=== PATIENT | male | born 1970 | race Caucasian/White ===

== ENCOUNTER 2017-05-19 05:28 | Emergency (ER) | payer BC ==
[2017-05-19] MEDS ORDERED: Ibuprofen TAB* 800 MG PO ONE (06:16)
--- NOTE | 2017-05-19 06:54 | ED ---
I, Cruz,Daniel, scribed for Stanley Yu MD on 05/19/17 at 0617 . Throat Pain/Nasal Congestion - HPI Summary HPI Summary: This 46 y/o male presents to ED for gradually worsening sore throat and coughing since 2 days ago. Positive fever reported with temperature of 102.9 F at home [employer]. Temperature of 99.9 F is noted at triage. present at bedside expresses concern stating that pt "almost threw up with coughing so much". Pt did not take any med to control his symptoms. PMHx includes HTN. Pt is not a smoker. Plan of care involving rapid flu swap and CXR to r/o flu and PNA is discussed with pt and present at bedside, and they are agreeable at this moment. 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, Medical Records Onset/Duration: Gradual Onset, Lasting Days - 2 days ago, Still Present Cough: Nonproductive - Allergies/Home Medications Allergies/Adverse Reactions: Allergies Allergy/AdvReac Type Severity Reaction Status Date / Time Ascorbate Allergy Intermediate Swelling Verified 04/02/15 13:35 [From Multivitamin Therapeutic] Bupropion [From Wellbutrin] Allergy Intermediate Swelling Verified 04/02/15 13: 35 Niacinamide Allergy Intermediate Swelling Verified 04/02/15 13:35 [From Multivitamin Therapeutic] Pantothenic Acid Allergy Intermediate Swelling Verified 04/02/15 13:35 [From Multivitamin Therapeutic] Pyridoxine Allergy Intermediate Swelling Verified 04/02/15 13:35 [From Multivitamin Therapeutic] Riboflavin Allergy Intermediate Swelling Verified 04/02/15 13:35 [From Multivitamin Therapeutic] Thiamine Allergy Intermediate Swelling Verified 04/02/15 13:35 [From Multivitamin Therapeutic] Vitamin A Allergy Intermediate Swelling Verified 04/02/15 13:35 [From Multivitamin Therapeutic] Vitamin B12 Allergy Intermediate Swelling Verified 04/02/15 13:35 [From Multivitamin Therapeutic] PMH/Surg Hx/FS Hx/Imm Hx Endocrine/Hematology History: Denies: Hx Diabetes, Hx Thyroid Disease Cardiovascular History: Reports: Hx Hypertension Respiratory History: Denies: Hx Asthma, Hx Chronic Obstructive Pulmonary Disease (COPD) GI History: Denies: Hx Ulcer Infectious Disease History: Yes Infectious Disease History: Reports: Hx Shingles - 2003 Denies: Hx Clostridium Difficile, Hx Hepatitis, Hx Human Immunodeficiency Virus (HIV), Hx of Known/Suspected MRSA, Hx Tuberculosis, Hx Known/Suspected VRE , Hx Known/Suspected VRSA, History Other Infectious Disease, Traveled Outside the [place] in Last 30 Days - Family History Known Family History: Negative: Cardiac Disease - Social History Alcohol Use: Rare Substance Use Type: Reports: None Smoking Status (MU): Never Smoked Tobacco Review of Systems Positive: Fever - Temperature of 102.9 F at home Positive: Sore Throat Positive: Cough Positive: Nausea. Negative: Vomiting All Other Systems Reviewed And Are Negative: Yes Physical Exam Triage Information Reviewed: Yes Vital Signs On Initial Exam: Initial Vitals Temp Pulse Resp BP Pulse Ox 99.9 F 75 18 153/102 95 05/19/17 05:44 05/19/17 05:44 05/19/17 05:44 05/19/17 05:44 05/19/17 05:44 Vital Signs Reviewed: Yes Diagnostics - Vital Signs Vital Signs Temp Pulse Resp BP Pulse Ox 05/19/17 06:07 98.3 F 05/19/17 06:03 69 96 05/19/17 06:01 138/98 05/19/17 05:44 99.9 F 75 18 153/102 95 - Laboratory Lab Results: Lab Results 05/19/17 05/19/17 Range/Units 06:33 06:37 Influenza A (Rapid) Negative (Negative) Influenza B (Rapid) Negative (Negative) Group A Strep Rapid Negative (Negative) Lab Statement: Any lab studies that have been ordered have been reviewed, and results considered in the medical decision making process. - Radiology No standard instances Xray Interpretation: No Acute Changes Radiology Interpretation Completed By: ED Physician Re-Evaluation - Re-Evaluation First Eval Re-Evaluation Time: 07:17 Comment: results d/w pt EENT Course/Dx - Diagnoses Provider Diagnoses: Cough, Viral syndrome Discharge - Discharge Plan Condition: Improved Disposition: HOME Discharge Disposition Comment: Signed out at shift change. Pending CXR and rapid flu result. Prescriptions: Cetirizine* [ZyrTEC 10 MG TAB*] 10 mg PO DAILY #7 tab GuaiFENesin DM* [Robitussin DM*] 10 ml PO Q4H #180 ml Referrals: Garcia Lemon MD [Primary Care Provider] - The documentation as recorded by the [email or web address] urena Soohyun accurately reflects the service I personally performed and the decisions made by me, Stanley Yu MD.
[2017-05-19 07:47] VITALS: BP 142/91
--- NOTE | 2017-05-19 07:49 | RAD ---
INDICATION: Fever and cough COMPARISON: None TECHNIQUE: PA and lateral views of the chest were obtained. FINDINGS: The heart and mediastinum are normal in size and contour. There is potential faint infiltrate overlying the medial right lung base. The remaining visualized lungs are are grossly clear. There is no evidence of large pleural effusion. Visualized bones are normal for the patient's age. There is no radiographic evidence of free air beneath the diaphragm IMPRESSION: POTENTIAL INFILTRATE AT THE RIGHT LUNG BASE.
== END 2017-05-19 07:45 | disposition home or self-care (01) ==
LOC: ED 05:28
DX: B34.9 Viral infection, unspecified (principal); R05 Cough; I10 Essential (primary) hypertension
CPT/HCPCS: 71020; 87502; 87651; 99282; A9270-GY

== ENCOUNTER 2017-10-31 11:45 | Emergency (ER) | payer BC ==
--- NOTE | 2017-10-31 12:27 | UC ---
Hand/Wrist HPI - HPI Summary HPI Summary: Pt presents with right middle finger pain since yesterday. He tells me that yesterday he went to open his truck gate, but it was frozen - so he pulled harder when it swung open and hit his finger between the gate and the bumper. Had immediate pain and "numb feeling" followed by swelling of right middle finger. Woke up today and still had pain, but numbness is improved. Today he thinks the ring and index fingers are swollen as well. Denies hx of injury to this hand or finger. Took some ibuprofen last night and has been applying ice. - History Of Current Complaint Chief Complaint: UCUpperExtremity Stated Complaint: FINGER INJURY Time Seen by Provider: 10/31/17 12:20 Hx Obtained From: Patient Onset/Duration: Sudden Onset Severity Initially: Mild Severity Currently: Mild Pain Intensity: 1 Pain Scale Used: 0-10 Numeric Character Of Pain: Aching, Stiffness - Allergies/Home Medications Allergies/Adverse Reactions: Allergies Allergy/AdvReac Type Severity Reaction Status Date / Time Ascorbate Allergy Intermediate Swelling Verified 10/31/17 12:01 [From Multivitamin Therapeutic] Bupropion [From Wellbutrin] Allergy Intermediate Swelling Verified 10/31/17 12: 01 Niacinamide Allergy Intermediate Swelling Verified 10/31/17 12:01 [From Multivitamin Therapeutic] Pantothenic Acid Allergy Intermediate Swelling Verified 10/31/17 12:01 [From Multivitamin Therapeutic] Pyridoxine Allergy Intermediate Swelling Verified 10/31/17 12:01 [From Multivitamin Therapeutic] Riboflavin Allergy Intermediate Swelling Verified 10/31/17 12:01 [From Multivitamin Therapeutic] Thiamine Allergy Intermediate Swelling Verified 10/31/17 12:01 [From Multivitamin Therapeutic] Vitamin A Allergy Intermediate Swelling Verified 10/31/17 12:01 [From Multivitamin Therapeutic] Vitamin B12 Allergy Intermediate Swelling Verified 10/31/17 12:01 [From Multivitamin Therapeutic] Home Medications: Home Medications Amlodipine Besylate [Norvasc 10 mg tab] 10 mg PO DAILY 10/31/17 [History Confirmed 10/31/17] Hydrochlorothiazide TAB* [Hydrodiuril TAB*] 12.5 mg PO DAILY 10/31/17 [History Confirmed 10/31/17] PMH/Surg Hx/FS Hx/Imm Hx Cardiovascular History: Hypertension - Surgical History Surgical History: None - Family History Known Family History: Negative: Cardiac Disease - Social History Occupation: Employed Full-time Lives: With Family Alcohol Use: Rare Substance Use Type: None Smoking Status (MU): Never Smoked Tobacco - Immunization History Most Recent Influenza Vaccination: Fall 2016 Most Recent Tetanus Shot: 07/19/2011 Review of Systems Constitutional: Negative Skin: Negative, Other - Ecchymosis overlying PIP right middle finger Respiratory: Negative Cardiovascular: Negative Neurovascular: Negative Musculoskeletal: Edema - Right middle finger All Other Systems Reviewed And Are Negative: Yes Physical Exam Triage Information Reviewed: Yes Appearance: Well-Appearing, No Pain Distress, Obese Vital Signs: Initial Vital Signs Temp 98.2 F 10/31/17 11:57 Pulse 56 10/31/17 11:57 Resp 16 10/31/17 11:57 BP 178/112 10/31/17 11:57 Pulse Ox 97 10/31/17 11:57 Vital Signs Reviewed: Yes Cardiovascular: Positive: RRR, No Murmur, Pulses Normal, Brisk Capillary Refill - Right middle finger Musculoskeletal: Positive: Strength Intact - Right middle finger and all fingers , ROM Intact - Right middle finger and all fingers including opposition, Edema @ - Right middle finger mild, Other: - TTP overlying the right middle finger PIP Neurological: Positive: Alert, Other: - Sensations intact right hand and all fingers Psychological: Positive: Age Appropriate Behavior Skin: Negative: rashes Hand/Wrist Course/Dx - Course Course Of Treatment: HandXR : SOFT TISSUE SWELLING. NO ACUTE BONY FINDINGS. Repeat BP 140/100. His HTN is an ongoing issue and he tells me that his PCP is aware and they are in the process of adjusting medications. Suspect contusion of finger. Will place in splint for comfort and advise to continue with ice and ibuprofen prn. - Differential Dx/Diagnosis Provider Diagnoses: Right middle finger contusion Discharge - Discharge Plan Condition: Stable Disposition: HOME Patient Education Materials: Contusion in Adults (ED) Referrals: Garcia Lemon MD [Primary Care Provider] - Additional Instructions: If you develop a fever, shortness of breath, chest pain, new or worsening symptoms - please call your PCP or go to the ED. Your blood pressure was high at todays visit. Please see your primary provider within 4 weeks for recheck and re-evaluation. 1) Activities as tolerated with your hand/finger. 2) Ice, ibuprofen, and splint for comfort as needed.
--- NOTE | 2017-10-31 12:41 | RAD ---
INDICATION: Right third digit pain COMPARISON: None TECHNIQUE: AP, lateral, and oblique views were obtained. FINDINGS: The bony structures, joint spaces, and soft tissues are normal for age. IMPRESSION: NEGATIVE EXAMINATION.
--- NOTE | 2017-10-31 12:44 | RAD ---
INDICATION: Right hand injury COMPARISON: None TECHNIQUE: AP, lateral, and oblique views were obtained. FINDINGS: There are no acute bony findings. The joint spaces are maintained. There is mild soft tissue swelling at the third metacarpophalangeal joint. IMPRESSION: SOFT TISSUE SWELLING. NO ACUTE BONY FINDINGS.
[2017-10-31 13:13] VITALS: BP 142/100
== END 2017-10-31 13:03 | disposition home or self-care (01) ==
LOC: UCEAST 11:45
DX: S60.031A Contusion of right middle finger without damage to nail, initial encounter (principal); W22.8XXA Striking against or struck by other objects, initial encounter; Y93.89 Activity, other specified; Y92.9 Unspecified place or not applicable; I10 Essential (primary) hypertension; E66.9 Obesity, unspecified; Z88.8 Allergy status to other drugs, medicaments and biological substances
CPT/HCPCS: 73140; 99213; G0463

== ENCOUNTER 2018-10-20 07:47 | Emergency (ER) | payer BC ==
--- OUTSIDE RECORDS SUMMARY | 2018-10-20 07:52 | XMS REPORT | Continuity of Care Document ---
:1970 External Reference #:[id number] Author Name Enedelia Murray Care Team Providers Name Role Phone Garcia Lemon MD Primary Care Physician Unavailable Payers Type Date Identification Numbers Payment Provider Subscriber Effective: 2012 Policy Number: [id number] BS Francoise Bojorquez PayID: [id number] [facility] [address] [place] [address] Advance Directives Description No Information Available Problems Date Description Provider Status Onset: 11/08/2014 Dyssomnia Vivian Hayes MD Active Onset: 11/08/2014 Morbid obesity Vivian Hayes MD Active Onset: 02/10/2015 Obstructive sleep apnea syndrome Vivian Hayes MD Active Onset: 02/10/2015 Obesity Vivian Hayes MD Active Onset: 02/23/2018 Localized, primary osteoarthritis Patrick Keenan MD Active Onset: 02/23/2018 Knee joint effusion Patrick Keenan MD Active Family History Date Family Member(s) Problem(s) Comments Father No Current Problems Mother Diabetes Type I Mother had cancer, pt does not know what type; alive and home w/oxygen Siblings 1 Siblings alive and well Social History Type Date Description Comments Sex Unknown Marital Status Lives With Children Lives With Occupation Currently Working Occupation [employer] Tobacco Use Start: Unknown End: Former Cigarette Smoker Unknown Smoking Status Reviewed: 09/29/18 Former Cigarette Smoker ETOH Use Drinks Alcoholic Beverages Rarely Tobacco Use Start: Unknown End: Patient is a former smoked in teens - 2 Unknown smoker yrs Recreational Drug Use Denies Drug Use Exercise Type/Frequency Exercises regularly Exercise Type/Frequency Walks daily Allergies, Adverse Reactions, Alerts Date Description Reaction Status Severity Comments 10/18/2014 Wellbutrin Active swollen arm, feet, toung Medications Medication Date Status Form Strength Qnty SIG Indications Ordering Provider Elbow Support 09/29 Active Misc 2unit Please wear Garcia Left-Right/Small- s nightly to Sonia, edium protect M.D. elbows and improve tendonitis Humira 09/29 Active PSKT 40mg/0.8M 6unit inject 40 L s mg Sonia, subcutaneou M.D. s once every other week prefilled syringe Humira Pen 09/29 Active PNKT 40mg/0.4M 2unit inject 40 L40.50 L s mg sc every Sonia, other week M.D. Methotrexate 08/31 Active Tablets 2.5mg 30tab take 5 L40.50 s capsules/ta Sonia, blets by M.D. mouth once weekly Folic Acid 08/31 Active Tablets 1mg 90tab take one L40.50 s capsule/tab Sonia, let daily M.D. by mouth [place]-3 Fish Oil 03/20 Active Capsules 1290mg 1 by mouth Vivian /2018 one time Freddy, per day (not taking) Hydrochlorothiazid Active Tablets 12.5mg 90tab 1 by mouth Unknown e /0000 s every day Amlodipine Active Tablets 10mg 90tab 1 by mouth Unknown Besylate /0000 s every day Methylprednisolone 06/20 Hx TBPK 4mg 21uni medrol M25.462 ts dosepak F - take as Ree 09/29 instructed 2018 Vitamin D 00 Hx daily Unknown /0000 - 03/19 Diclofenac Sodium Hx Gel 1% Apply 2 Unknown /0000 Grams To - The 03/19 Joint Four Times A Day Turmeric Hx 1 by mouth Unknown /0000 two times - per day 09/29 Boswellia Ivonne Hx 1 by mouth Unknown Extract / two times - per day 09/29 Sulindac Hx Tablets 200mg 1 by mouth Unknown /0000 two times - per day 09/29 Medications Administered in Office Medication Date Status Form Strength Qnty SIG Indications Ordering Provider Depomedrol Administered Injection Kelly 40MG 018 FAROOQ Lee Depomedchasity Administered Injection Kelly 40MG 018 FAROOQ Lee Immunizations CPT Code Status Date Vaccine Lot # [id number] Given 09/29/2018 Pneumococcal Conjugate Vaccine 13 Valent For [id number] Intramuscular Use Vital Signs Date Vital Result Comment 09/29/2018 9:25am Height 73 inches 6'1" Weight 299.00 lb Heart Rate 67 /min BP Systolic Sitting 134 mmHg BP Diastolic Sitting 92 mmHg Respiratory Rate 14 /min Pain Level 6 BMI (Body Mass Index) 39.4 kg/m2 08/31/2018 7:47am Height 73 inches 6'1" Weight 303.00 lb Heart Rate 68 /min BP Systolic 128 mmHg BP Diastolic 80 mmHg Pain Level 7 O2 % BldC Oximetry 98 % BMI (Body Mass Index) 40.0 kg/m2 06/20/2018 8:21am Height 73 inches 6'1" Weight 295.00 lb Heart Rate 61 /min Respiratory Rate 16 /min Body Temperature 97.9 F Pain Level 6 BMI (Body Mass Index) 38.9 kg/m2 06/01/2018 10:27am Height 73 inches 6'1" Weight 296.00 lb Heart Rate 78 /min BP Systolic 136 mmHg BP Diastolic 88 mmHg Respiratory Rate 18 /min Pain Level 7 BMI (Body Mass Index) 39.0 kg/m2 04/20/2018 9:06am Height 73 inches 6'1" Weight 296.00 lb Heart Rate 59 /min BP Systolic 153 mmHg BP Diastolic 101 mmHg Body Temperature 96.9 F BMI (Body Mass Index) 39.0 kg/m2 03/20/2018 8:32am Height 73 inches 6'1" Weight 300.38 lb Heart Rate 52 /min BP Systolic Sitting 142 mmHg Rue large cuff BP Diastolic Sitting 100 mmHg Rue large cuff Respiratory Rate 14 /min O2 % BldC Oximetry 98 % On Ra BMI (Body Mass Index) 39.6 kg/m2 Neck Circumference in inches 20 02/23/2018 8:08am Height 73 inches 6'1" Weight 294.00 lb BP Systolic 126 mmHg BP Diastolic 82 mmHg Respiratory Rate 15 /min Pain Level 8 BMI (Body Mass Index) 38.8 kg/m2 02/10/2015 8:27am Height 73 inches 6'1" Weight 276.00 lb Heart Rate 59 /min BP Systolic Sitting 138 mmHg BP Diastolic Sitting 74 mmHg Respiratory Rate 18 /min O2 % BldC Oximetry 98 % BMI (Body Mass Index) 36.4 kg/m2 11/08/2014 8:23am Height 71 inches 5'11" Weight 282.00 lb Heart Rate 58 /min BP Systolic Sitting 136 mmHg BP Diastolic Sitting 78 mmHg Respiratory Rate 18 /min Body Temperature 98.1 F O2 % BldC Oximetry 98 % BMI (Body Mass Index) 39.3 kg/m2 Neck Circumference in inches 19 Results Test Date Facility Test Result H/L Range Note Anca AB Ser If 08/31/2018 [facility] C-Anca Negative Negative [address] [place] [address] [phone] P-Anca Negative Negative 1 Laboratory test 08/31/2018 [facility] Angiotensin 38 U/L 8 - 53 [address] [place] [address] [phone] CBC Auto Diff 08/31/2018 [facility] White Blood Count 7.5 N 3.5-10.[address] 10^3/[place] [address] [phone] Red Blood Count 5.12 10^6/uL N 4.00-5.40 Hemoglobin 15.4 g/dL N 14.0-18.0 Hematocrit 44 % N 42-52 Mean Corpuscular Volume 86 fL N 80-94 Mean Corpuscular Hemoglobin 30 pg N 27-31 Mean Corpuscular HGB Conc 35 g/dL N 31-36 Red Cell Distribution Width 14 % N 10.5-15 Platelet Count 190 10^3/uL N 150-450 Mean Platelet Volume 9.9 fL N 7.4-10.4 Abs Neutrophils 5.4 10^3/uL N 1.5-7.7 Abs Lymphocytes 1.3 10^3/uL N 1.0-4.8 Abs Monocytes 0.7 10^3/uL N 0-0.8 Abs Eosinophils 0.1 10^3/uL N 0-0.6 Abs Basophils 0 10^3/uL N 0-0.2 Abs Nucleated RBC 0 10^3/uL Granulocyte % 72.0 % N 38-83 Lymphocyte % 17.1 % Low 25-47 Monocyte % 9.8 % High 0-7 Eosinophil % 0.7 % N 0-6 Basophil % 0.4 % N 0-2 Nucleated Red Blood Cells % 0.1 Comp Metabolic Panel 08/31/2018 [facility] Sodium 142 mmol/L N 135-[address] [place] [address] [phone] Potassium 3.2 mmol/L Low 3.5-5.0 Chloride 105 mmol/L N 101-111 Co2 Carbon Dioxide 28 mmol/L N 22-32 Anion Gap 9 mmol/L N 2-11 Glucose 97 mg/dL N 70-100 Blood Urea Nitrogen 18 mg/dL N 6-24 Creatinine 0.94 mg/dL N 0.67-1.17 BUN/Creatinine Ratio 19.1 N 8-20 Calcium 9.3 mg/dL N 8.6-10.3 Total Protein 6.7 g/dL N 6.4-8.9 Albumin 4.6 g/dL N 3.2-5.2 Globulin 2.1 g/dL N 2-4 Albumin/Globulin Ratio 2.2 N 1-3 Total Bilirubin 1.60 mg/dL High 0.2-1.0 Alkaline Phosphatase 90 U/L N 34-104 Alt 45 U/L N 7-52 Ast 32 U/L N 13-39 Egfr Non- 85.3 >60 Egfr 103.2 >60 3 Hepatitis 08/31/2018 [facility] Hepatitis A Nonreactive Nonreactive [address] [place] [address] [phone] Hepatitis B Core AB Igm Nonreactive Nonreactive 5 Hepatitis B Surface Ag Nonreactive Nonreactive 6 Hepatitis C Antibody 08/31/2018 [facility] HCV Index < 0.[address] [place] [address] [phone] Hepatitis C Antibody Nonreactive Nonreactive Arthritis Panel 06/20/2018 [facility] Erythrocyte Sed 17 mm/Hr High 0-[address] [place] [address] [phone] Uric Acid 8.4 mg/dL High 4.4-7.6 Rheumatoid Factor < 10 IU/mL N <15 Anti-Nuclear Antibody 0.6 U 7 Cyclic Citrullinated Peptide <15.6 U 8 Interpretation See Comment 9 Laboratory test 06/20/2018 [facility] C Reactive 2.48 mg/L N < 8.[address] [place] [address] [phone] Hla B27 06/20/2018 [facility] Hla B27 Negative [address] [place] [address] [phone] Hla B27 Interp See Comment 11 Laboratory test 04/20/2018 [facility] Mycobacterial See Comment 12, [address] [place] [address] [phone] Laboratory test 04/20/2018 [facility] Fungal Cult Other SEE RESULT [address] [place] [address] [phone] Laboratory test 04/20/2018 [facility] Fungal Cult Other SEE RESULT [address] [place] [address] [phone] Lyme Disease 04/20/2018 [facility] Lyme Disease SYNOVIAL PCR [address] Source FLUID Tissue/Fluid [place], [place] [id number] [phone] B. burgdorferi PCR Negative Negative B. mayonii PCR Negative Negative B. garinii/B. afzellii PCR Negative Negative 16 Body Fluid Cell 04/20/2018 [facility] Body Fluid Synovial Fluid Count [address] [place] [address] [phone] Body Fluid WBC 187 /mcL N 17 Body Fluid RBC 69 /mcL Body Fluid Appearance Clear Body Fluid Color Yellow Body Fluid Volume 60 mL Body Fluid Neutrophils 3 % Body Fluid Lymph 28 % Body Fluid Solano 69 % Body Fluid Other Cells 3 Body Fluid Total Cells Counted 100 Fluid Reviewed By MD (SEE NOTE) 18 Body Fluid C&S 04/20/2018 [facility] Body Fluid SEE RESULT [address] [place] [address] Stain [phone] Laboratory test 04/20/2018 [facility] Body Fluid None Seen None Seen [address] [place] [address] [phone] 1 Negative for cANCA and pANCA patterns by immunofluorescence. ADDITIONAL INFORMATION This test was developed and its performance characteristics determined by [facility] in a manner consistent with CLIA requirements. This test has not been cleared or approved by the U.S. Food and Drug Administration. Test Performed by: [facility] BLOVES - [facility] [address] [place] [address] 2 Test Performed by: [facility] - [place] [address] [place] [address] 3 Because ethnic data is not always readily available, this report includes an eGFR for both -Americans and non- Americans. The National Kidney Disease Education Program (NKDEP) does not endorse the use of the MDRD equation for patients that are not between the ages of 18 and 70, are , have extremes of body size, muscle mass, or nutritional status, or are non- or non-. According to the National Kidney Foundation, irrespective of diagnosis, the stage of the disease is based on the level of kidney function: Stage Description GFR(mL/min/1.73 m(2)) 1 Kidney damage with normal or decreased GFR 90 2 Kidney damage with mild decrease in GFR 60-89 3 Moderate decrease in GFR 30-59 4 Severe decrease in GFR 15-29 5 Kidney failure <15 (or dialysis) 4 Please check labs and xrays today 5 Please check labs and xrays today 6 Please check labs and xrays today 7 REFERENCE VALUE <=1.0 (Negative) 8 REFERENCE VALUE <20.0 (Negative) 9 Tests for antibodies to dsDNA and YEHUDA antigens are not performed automatically unless the CIELO result is > or= 3.0 U. Studies performed at [facility] indicate that positive CIELO results <3.0 U are rarely accompanied by positive second order tests. Test Performed by: [facility] - [facility] [address] [place] [address] 10 REFERENCE VALUE Not Applicable 11 RESULT: HLA-B27 antigen was not detected. ADDITIONAL INFORMATION Method: Flow Cytometry Performing Laboratory IA# [id number] Test Performed by: [facility] [address] [place] [id number] 12 [id number] SOURCE: SYNOVIAL FLUID, NOT OTHERWISE SPECIFIED, SYNOVIAL FLUID MYCOBACTERIAL CULTURE FINAL No growth after 42 days of incubation. Test Performed by: [facility] [address] [place] [address] 14 SEE RESULT BELOW Name: NORMA BOJORQUEZ : [address]: Patrick Keenan MD Acct: [id number] Unit: [id number] AGE: 47 Location: [facility] Re04/20/18 SEX: M Status: REG REF SPEC: [id number] DOMINGO: 04/20/18-[address] [facility] DR: Patrick Keenan MD REQ: [id number] RECD: 04/20/18 STATUS: COMP _ SOURCE: WOUND SPDESC:KNEE LEFT ORDERED: Fungal - Other COMMENTS: [id number] Procedure Result Reported Site Fungal Cult - Other Sources Final 05/22/18- 1254 ML No Growth Week 4 * ML - Main Lab . END OF REPORT DEPARTMENT OF PATHOLOGY, [address] [place] [address] Deric Kiran M.D. Director [facility] # [id number] 15 SEE RESULT BELOW Name: NORMA BOJORQUEZ : [address]: Patrick Keenan MD Acct: [id number] Unit: [id number] AGE: 47 Location: [facility] Re04/20/18 SEX: M Status: REG REF SPEC: [id number] DOMINGO: 04/20/18-[address]: Patrick Keenan MD REQ: [id number] RECD: 04/20/18 STATUS: RES _ SOURCE: WOUND SPDESC:KNEE LEFT ORDERED: Fungal - Other COMMENTS: [id number] Procedure Result Reported Site Fungal Cult - Other Sources Preliminary 05/15/18- 1055 ML No Growth Week 3 * ML - Main Lab . END OF REPORT DEPARTMENT OF PATHOLOGY, [address] [place] [address] Deric Kiran M.D. Director [facility] # [id number] 16 ADDITIONAL INFORMATION This test was developed and its performance characteristics determined by [facility] in a manner consistent with CLIA requirements. This test has not been cleared or approved by the U.S. Food and Drug Administration. Test Performed by: [facility] - [address] [address] -- REFERENCE VALUE -- Synovial: <150/mcL Peritoneal: <500/mcL Pleural: <500/mcL Pericardial: <500/mcL 18 No acute inflammatory response noted. No microorganisms seen. Reviewed by Dr. Kiran 19 SEE RESULT BELOW Name: NORMA BOOJRQUEZ : [address]: Patrick Keenan MD Acct: [id number] Unit: [id number] AGE: 47 Location: [facility] Re04/20/18 SEX: M Status: REG REF SPEC: [id number] DOMINGO: 04/20/18-[address] [facility] DR: Patrick Keenan MD REQ: [id number] RECD: 04/20/18 STATUS: COMP _ SOURCE: BODY FLUID SPDESC: ORDERED: BF Cult/GS, Anaerobic Cult, AFB Cult Smear COMMENTS: [id number] Procedure Result Reported Site Body Fluid Gram Stain Final 04/21/181422 ML 1+ Neutrophils 2+ Nucleated Cells No Organisms Seen Preparation By Cytospin Smear Body Fluid Culture Final 04/24/181120 ML No Growth Day 4 Anaerobic Culture Final 04/24/181120 ML No Growth Day 4 Acid Fast Stain - Direct Final 04/21/181422 ML AFB Smear Result No Acid Fast Bacillus Present (Negative) Preparation By Cytospin Smear Due to limited sensitivity of the smear, results should be used as an adjunct in evaluating the patient's status. This specimen has been sent to referral laboratory for mycobacterial culture. * ML - Main Lab . END OF REPORT DEPARTMENT OF PATHOLOGY, [address] [place] [address] Deric Kiran M.D. 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 M17.12 Unilateral primary osteoarthritis, left knee M54.5 Low back pain M17.0 Bilateral primary osteoarthritis of knee M54.16 Radiculopathy, lumbar region Office Visit 06/01/2018 10:30a Orthopedic Patrick F M25.462 Effusion, left Services Of [facility] Re[facility] knee C.M.A. M17.12 Unilateral primary osteoarthritis, left knee M25.562 Pain in left knee Office Visit 04/20/2018 Orthopedic Patrick F M17.0 Bilateral primary 9:00a Services Of [facility] osteoarthritis of C.M.A. knee M25.462 Effusion, left knee M17.12 Unilateral primary osteoarthritis, left knee Office Visit 03/20/2018 8:30a Pulmonology And Vivian G47.33 Obstructive sleep Sleep Services Of [facility] Freddy apnea (adult) Best Worker (pediatric) E66.01 Morbid (severe) obesity due to excess calories Z68.39 Body mass index (BMI) 39.0-39.9, adult Office Visit 02/23/2018 Orthopedic Patrick F M17.0 Bilateral primary 8:00a Services Of [facility] Re[facility] osteoarthritis of C.M.A. knee M25.462 Effusion, left knee Office Visit 02/10/2015 8:30a Pulmonology And Vivian 327.23 Obstructive Sleep Sleep Services Of [facility] Apnea Adult & Best Worker Pediatric 278.00 Obesity Unspec Office Visit 11/08/2014 8:45a Pulmonology And Vivian 780.59 Sleep Disturbances Sleep Services Of [facility] Freddy Other [facility] 278.01 Obesity Morbid Plan of Treatment Future Appointment(s):11/22/2018 8:20 am - Garcia Scott M.D. 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
[2018-10-20] MEDS ORDERED: HYDROcodone/ACETAMIN 5-325 MG* 1 TAB PO ONE (08:44)
--- NOTE | 2018-10-20 08:53 | UC ---
Lower Extremity/Ankle HPI - HPI Summary HPI Summary: ONSET YESTERDAY OF LEFT GREAT TOE SWELLING AND PAIN. THIS MORNING PAIN IS WORSE AND SWELLING IS ENCOMPASSING HIS WHOLE FOOT. DENIES ANY RECENT INJURY OR TRAUMA THAT HE CAN RECALL. ALSO IS COMPLAINING OF SEVERAL WEEKS OF COUGH, CONGESTION, FATIGUE, BODY ACHES. HAS SUBJECTIVE FEVER AND FATIGUE. TAKES METHOTREXATE WEEKLY FOR PSORIATIC ARTHRITIS. - History of Current Complaint Chief Complaint: UCGeneralIllness Stated Complaint: L FOOT SWELLING, COUGH Time Seen by Provider: 10/20/18 08:08 Hx Obtained From: Patient, Family/Office Automation Technician - Onset/Duration: Gradual Onset, Lasting Days - 1 DAY, Still Present Severity Initially: Mild Severity Currently: Moderate Pain Intensity: 8 Pain Scale Used: 0-10 Numeric Aggravating Factor(s): Standing, Ambulation Alleviating Factor(s): Rest Able to Bear Weight: Yes - WITH PAIN - Allergies/Home Medications Allergies/Adverse Reactions: Allergies Allergy/AdvReac Type Severity Reaction Status Date / Time bupropion [From Wellbutrin] Allergy Intermediate Swelling Verified 10/20/18 08: 01 multivitamin therapeutic Allergy Intermediate Swelling Uncoded 10/20/18 08:01 Home Medications: Home Medications Chlorpheniramine/Dextromethorp [Cough-Cold Tablet] 1 tab PO ONCE PRN 10/20/18 [ History Confirmed 10/20/18] Folic Acid 1 mg PO DAILY 10/20/18 [History Confirmed 10/20/18] Methotrexate TAB* 5 mg PO WEEKLY PRN 10/20/18 [History Confirmed 10/20/18] Potassium 1 tab PO DAILY 10/20/18 [History Confirmed 10/20/18] Sildenafil (NF) [Viagra (NF)] 1 tab PO DAILY PRN 10/20/18 [History Confirmed 02/02] PMH/Surg Hx/FS Hx/Imm Hx - Additional Past Medical History Additional PMH: PSORIATIC ARTHRITIS Cardiovascular History: Hypertension - Surgical History Surgical History: Yes Surgery Procedure, Year, and Place: cirumscision - Family History Known Family History: Negative: Cardiac Disease - Social History Alcohol Use: Rare Substance Use Type: None Smoking Status (MU): Never Smoked Tobacco - Immunization History Most Recent Influenza Vaccination: Fall 2016 Most Recent Tetanus Shot: 07/19/2011 Review of Systems All Other Systems Reviewed And Are Negative: Yes Constitutional: Positive: Fever, Chills, Fatigue ENT: Positive: Nasal Discharge Respiratory: Positive: Cough Cardiovascular: Positive: Negative Gastrointestinal: Positive: Negative Musculoskeletal: Positive: Arthralgia, Decreased ROM, Edema Is Patient Immunocompromised?: Yes - METHOTREXATE Physical Exam Triage Information Reviewed: Yes Appearance: Well-Appearing, Well-Nourished, Pain Distress - MILD Vital Signs: Initial Vital Signs Temp 98.9 F 10/20/18 07:52 Pulse 72 10/20/18 07:52 Resp 20 10/20/18 07:52 BP 131/88 10/20/18 07:52 Pulse Ox 96 10/20/18 07:52 Laboratory Tests 10/20/18 08:15 Influenza A (Rapid) Negative Influenza B (Rapid) Negative Vital Signs Reviewed: Yes Eyes: Positive: Conjunctiva Clear ENT: Positive: Hearing grossly normal, Pharynx normal, TMs normal Neck: Positive: Supple, Nontender, No Lymphadenopathy Respiratory Exam: Normal Cardiovascular Exam: Normal Abdomen Description: Positive: Soft Musculoskeletal: Positive: ROM Limited @ - TOES LEFT FOOT, Edema @ - LEFT FOOT, Other: - EXQUISITELY TENDER LEFT MTP JOINT. NOT TENDER OVER ANKLE OR FOREFOOT. ACHILLES INTACT. NO CALF TENDERNESS OR SWELLING Neurological: Positive: Alert Psychological: Positive: Age Appropriate Behavior Skin: Positive: Other - LEFT FOOT SLIGHTLY ERYTHEMATOUS DIFFUSELY Diagnostics - Radiology LEFT FOOT XRAYS Radiology Interpretation Completed By: Radiologist Summary of Radiographic Findings: SOFT TISSUE SWELLING. OTHERWISE UNREMARKABLE Lower Extremity Course/Dx - Differential Dx/Diagnosis Provider Diagnosis: Acute bronchitis, Swelling of left foot Discharge - Sign-Out/Discharge Documenting (check all that apply): Patient Departure All imaging exams completed and their final reports reviewed: Yes - Discharge Plan Condition: Stable Disposition: HOME Prescriptions: Azithromycin 500 mg PO DAILY #5 tab Codeine Phosphate/Guaifenesin [Codeine-Guaifen 10-100 mg/5 ml] 5 - 10 ml PO Q6H PRN #150 ml MDD 40ML PRN Reason: Cough Indomethacin 50 mg PO TID #15 capsule Patient Education Materials: Low Purine Diet (ED), Gout (ED), Acute Bronchitis (ED) Referrals: Garcia Lemon MD [Primary Care Provider] - (KEEP YOUR APPT IN 3 DAYS) Additional Instructions: YOUR SYMPTOMS MAY BE VIRALLY MEDIATED BUT GIVEN THE LENGTH OF TIME YOU HAVE BEEN ILL AND THE FACT THAT YOU ARE ON IMMUNOSUPPRESSIVE MEDICATION WE WILL COVER YOU WITH ANTIBIOTICS. IF YOU START THE MEDICINE BE SURE TO TAKE IT FOR THE FULL COURSE. REST, HYDRATE, OTC MEDS NEEDED. WILL ALSO TREAT WITH COUGH MEDICINE. SEEK FOLLOW-UP WITH YOUR PCP IF YOU ARE NOT IMPROVING OVER THE NEXT 1- 2 WEEKS. X-RAY OF YOUR FOOT TODAY WAS UNREMARKABLE EXCEPT FOR SOFT TISSUE SWELLING. CONSIDER GOUT. WOULD RECOMMEND LAB WORK ONCE YOU'RE SYMPTOM-FREE TO FURTHER EVALUATE FOR THIS CONDITION. TAKE ANTI-INFLAMMATORY 3 TIMES DAILY PRESCRIBED. INTERACTION BETWEEN THIS MEDICATION AND LOW-DOSE METHOTREXATE IS USUALLY NOT SIGNIFICANT BUT BE SURE TO STAY VERY WELL HYDRATED. - Billing Disposition and Condition Condition: STABLE Disposition: Home
[2018-10-20 10:26] VITALS: BP 142/81
== END 2018-10-20 10:17 | disposition home or self-care (01) ==
LOC: UCEAST 07:47
DX: J20.9 Acute bronchitis, unspecified (principal); M79.89 Other specified soft tissue disorders; L40.50 Arthropathic psoriasis, unspecified; Z88.8 Allergy status to other drugs, medicaments and biological substances; I10 Essential (primary) hypertension
CPT/HCPCS: 99212; G0463

== ENCOUNTER 2019-12-11 07:30 | Inpatient (IN) | payer BC ==
[~2019-12-11 07:30] MED LIST: Buffered Lidocaine 1% SYRIN* 1 ML/SYRINGE INTRADERM ONE; Famotidine IV* 10 MG/ML 2 ML (20 mg) IV ONE; Lactated Ringers 1000 ML Bag* 1,000 ML IV SCH; Scopolamine 1.5 mg* PATCH TRANSDERM ONE
--- OUTSIDE RECORDS SUMMARY | 2019-12-11 12:13 | XMS REPORT | Continuity of Care Document ---
:1970 External Reference #:[id number] Author Name Garcia Scott M.D. 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 Problems Active Problems Provider Date Dyssomnia Vivian Hayes MD Onset: 11/08/2014 Morbid obesity Vivian Hayes MD Onset: 11/08/2014 Obstructive sleep apnea syndrome Vivian Hayes MD Onset: 02/10/2015 Obesity Vivian Hayes MD Onset: 02/10/2015 Localized, primary osteoarthritis Patrick Keenan MD Onset: 02/23/2018 Knee joint effusion Patrick Keenan MD Onset: 02/23/2018 Social History Type Date Description Comments Sex Unknown Tobacco Use Start: Unknown End: Former Cigarette Smoker Unknown Smoking Status Reviewed: 10/22/19 Former Cigarette Smoker ETOH Use Drinks Alcoholic Beverages Rarely Tobacco Use Start: Unknown End: Patient is a former smoked in teens - 2 Unknown smoker yrs Recreational Drug Use Denies Drug Use Exercise Type/Frequency Exercises regularly Exercise Type/Frequency Walks daily Allergies, Adverse Reactions, Alerts Active Allergies Reaction Severity Comments Date Wellbutrin swollen arm, feet, toung 10/18/2014 Medications Active Medications SIG Qnty Indications Ordering Date Provider Ergocalciferol take one 12caps Garcia Scott, 09/26/2019 1.25mg (82172 capsule/tablet M.D. Ut) Capsules by mouth once weekly Atenolol 1 by mouth every 90tabs I71.2 Miquel Alonzo 09/18/2019 25mg Tablets day Chaudhari, DO FACC Colcrys take one 180tabs Garcia Johnsondor, 07/27/2019 0.6mg Tablets capsule/tablet M.D. by mouth twice daily as needed for gout attacks Stelara 90 mg sc at 1ml Garcia Johnsondor, 06/06/2019 90mg/ml Soln Prefill weeks 0 and 4, M.D. Syringe then every 12 weeks thereafter Allopurinol 1 by mouth every 90tabs L40.50 Garcia Johnsondor, 01/10/2019 300mg Tablets day M.D. Hydrocodone-Acetaminophen take one 14tabs Garcia Johnsondor, 12/18/2018 capsule/tablet M.D. 7.5-325mg Tablets by mouth twice daily as needed for acute pain Potassium Chloride ER take one 14tabs Garcia Sonia, 10/08/2018 8Meq capsule/tablet M.D. Tablets ER daily by mouth Hydrochlorothiazide 1 by mouth every 90tabs Unknown 12.5mg day Tablets Amlodipine Besylate 1 by mouth every 90tabs Unknown 10mg day Tablets History Medications Taltz 160 mg (two 80 mg 8units Garcia Johnsondor, 05/17/2019 - 80mg/ml Solution injections) at week M.D. 06/06/2019 Auto-Inject 0, followed by 80 mg at weeks 2, 4, 6, 8, 10, and 12, then 80 mg every 4 weeks. Medications Administered in Office Medication SIG Qnty Indications Ordering Provider Date Depomedrol 40MG FAROOQ Melton 02/23/2018 Injection Depomedrol 40MG FAROOQ Melton 02/23/2018 Injection Immunizations CPT Code Status Date Vaccine Lot # [id number] Given 10/22/2019 Influenza Virus Vaccine, Quadrivalent, Split, [id number] Preservative Free 31209 Given 09/29/2018 Pneumococcal Conjugate Vaccine 13 Valent For [id number] Intramuscular Use Vital Signs Date Vital Result Comment 10/22/2019 7:54am Height 73 inches 6'1" Weight 289.25 lb Heart Rate 61 /min BP Systolic Sitting 132 mmHg BP Diastolic Sitting 80 mmHg Body Temperature 97.5 F Pain Level 5 O2 % BldC Oximetry 98 % BMI (Body Mass Index) 38.2 kg/m2 09/18/2019 7:57am Height 73 inches 6'1" Weight 290.00 lb with shoes Heart Rate 76 /min BP Systolic Sitting 134 mmHg LA BP Diastolic Sitting 92 mmHg LA BP Systolic Standing 138 mmHg LA BP Diastolic Standing 96 mmHg LA BMI (Body Mass Index) 38.3 kg/m2 Ejection Fraction 60-65% Echo 08/30/19 Results Test Acquired Date Facility Test Result H/L Range Note Laboratory test 10/20/2019 [facility] Erythrocyte Sed 3 mm/Hr Normal 0-[address] [place] [address] [phone] C Reactive Protein < 1.00 mg/L Normal <8.01 CBC Auto 10/20/2019 [facility] White Blood 6.7 10^3/uL Normal 3.5-10.[address] [place] [address] [phone] Red Blood Count 4.83 10^6/uL Normal 4.18-5.48 Hemoglobin 14.9 g/dL Normal 14.0-18.0 Hematocrit 43 % Normal 42-52 Mean Corpuscular Volume 89 fL Normal 80-94 Mean Corpuscular Hemoglobin 31 pg Normal 27-31 Mean Corpuscular HGB Conc 35 g/dL Normal 31-36 Red Cell Distribution Width 14 % Normal 10-15 Platelet Count 154 10^3/uL Normal 150-450 Mean Platelet Volume 10.0 fL Normal 7.4-10.4 Abs Neutrophils 4.5 10^3/uL Normal 1.5-7.7 Abs Lymphocytes 1.3 10^3/uL Normal 1.0-4.8 Abs Monocytes 0.8 10^3/uL Normal 0-0.8 Abs Eosinophils 0.1 10^3/uL Normal 0-0.6 Abs Basophils 0.0 10^3/uL Normal 0-0.2 Abs Nucleated RBC 0.0 10^3/uL Granulocyte % 66.7 % Lymphocyte % 19.4 % Monocyte % 11.9 % Eosinophil % 1.4 % Basophil % 0.6 % Nucleated Red Blood Cells % 0.0 Comp Metabolic 10/20/2019 [facility] Sodium 139 mmol/L Normal 135-[address] [place] [address] [phone] Potassium 3.7 mmol/L Normal 3.5-5.0 Chloride 105 mmol/L Normal 101-111 Co2 Carbon Dioxide 25 mmol/L Normal 22-32 Anion Gap 9 mmol/L Normal 2-11 Glucose 87 mg/dL Normal 70-100 Blood Urea Nitrogen 19 mg/dL Normal 6-24 Creatinine 1.05 mg/dL Normal 0.67-1.17 BUN/Creatinine Ratio 18.1 Normal 8-20 Calcium 9.1 mg/dL Normal 8.6-10.3 Total Protein 6.7 g/dL Normal 6.4-8.9 Albumin 4.3 g/dL Normal 3.2-5.2 Globulin 2.4 g/dL Normal 2-4 Albumin/Globulin Ratio 1.8 Normal 1-3 Total Bilirubin 1.40 mg/dL High 0.2-1.0 Alkaline Phosphatase 85 U/L Normal 34-104 Alt 69 U/L High 7-52 Ast 40 U/L High 13-39 Egfr Non- 74.5 >60 Egfr 90.1 >60 1 Laboratory test 10/20/2019 [facility] Uric Acid 6.5 mg/dL Normal 4.4-7.[address] [place] [address] [phone] Vitamin D Total 25(Oh) 26.8 ng/mL Normal 20-50 2 Laboratory test 07/23/2019 [facility] Erythrocyte Sed 8 mm/Hr Normal 0-[address] [place] [address] [phone] C Reactive Protein 1.98 mg/L Normal <8.01 Uric Acid 6.1 mg/dL Normal 4.4-7.6 CBC Auto 07/23/2019 [facility] White Blood 6.8 10^3/uL Normal 3.5-10.[address] [place] [address] [phone] Red Blood Count 5.00 10^6/uL Normal 4.18-5.48 Hemoglobin 15.1 g/dL Normal 14.0-18.0 Hematocrit 44 % Normal 42-52 Mean Corpuscular Volume 87 fL Normal 80-94 Mean Corpuscular Hemoglobin 30 pg Normal 27-31 Mean Corpuscular HGB Conc 35 g/dL Normal 31-36 Red Cell Distribution Width 14 % Normal 10-15 Platelet Count 182 10^3/uL Normal 150-450 Mean Platelet Volume 10.1 fL Normal 7.4-10.4 Abs Neutrophils 4.1 10^3/uL Normal 1.5-7.7 Abs Lymphocytes 1.6 10^3/uL Normal 1.0-4.8 Abs Monocytes 1.0 10^3/uL High 0-0.8 Abs Eosinophils 0.1 10^3/uL Normal 0-0.6 Abs Basophils 0.0 10^3/uL Normal 0-0.2 Abs Nucleated RBC 0.0 10^3/uL Granulocyte % 60.1 % Lymphocyte % 22.8 % Monocyte % 14.9 % Eosinophil % 1.7 % Basophil % 0.5 % Nucleated Red Blood Cells % 0.0 Comp Metabolic 07/23/2019 [facility] Sodium 141 mmol/L Normal 135-[address] [place] [address] [phone] Potassium 3.4 mmol/L Low 3.5-5.0 Chloride 105 mmol/L Normal 101-111 Co2 Carbon Dioxide 28 mmol/L Normal 22-32 Anion Gap 8 mmol/L Normal 2-11 Glucose 85 mg/dL Normal 70-100 Blood Urea Nitrogen 13 mg/dL Normal 6-24 Creatinine 0.91 mg/dL Normal 0.67-1.17 BUN/Creatinine Ratio 14.3 Normal 8-20 Calcium 9.3 mg/dL Normal 8.6-10.3 Total Protein 6.6 g/dL Normal 6.4-8.9 Albumin 4.4 g/dL Normal 3.2-5.2 Globulin 2.2 g/dL Normal 2-4 Albumin/Globulin Ratio 2.0 Normal 1-3 Total Bilirubin 1.20 mg/dL High 0.2-1.0 Alkaline Phosphatase 86 U/L Normal 34-104 Alt 142 U/L High 7-52 Ast 74 U/L High 13-39 Egfr Non- 88.2 >60 Egfr 106.7 >60 3 Laboratory test 06/08/2019 [facility] Surgical SEE RESULT 4 , [address] [place] [address] [phone] 1 Because ethnic data is not always readily [...] 15-29 5 Kidney failure <15 (or dialysis) 2 Total 25-Hydroxyvitamin D2 and D3 (25-OH-VitD) <10 ng/mL (severe deficiency) 10-19 ng/mL (mild to moderate deficiency) 20-50 ng/mL (optimum levels) 51-80 ng/mL (increased risk of hypercalciuria) >80 ng/mL (toxicity possible) 3 Because ethnic data is not always [...] 5 Kidney failure <15 (or dialysis) 4 [id number] 5 SEE RESULT BELOW Name: NORMA BOJORQUEZ : [address]: Herb Pena MD Acct: [id number] Unit: [id number] AGE: 48 Location: [facility] Re06/08/19 SEX: M Status: DEP REF SPEC: [id number] DOMINGO: 06/08/19- SUBM DR: Herb Pena MD REQ: [id number] RECD: 06/08/19 STATUS: MIGUELANGEL ONEILL DR: Hair Lemon MD _ ORDERED: LEVEL 4 COMMENTS: [id number] FINAL DIAGNOSIS Small bowel, duodenum, biopsy: -- Small bowel mucosa with normal villous architecture and no significant pathologic abnormality. CLINICAL HISTORY Gastric bypass POST-OPERATIVE DIAGNOSIS EGD: esophagus ??? normal; gastric ??? mild gastritis biopsy; duodenum ??? biopsy GROSS DESCRIPTION The specimen is received in formalin labeled, Biopsy Duodenum, and consists of three brown red irregular to polypoid soft tissue fragments aggregating 0.6 x 0.4 x 0.2 cm, which are entirely submitted in one cassette. Signed by and Reported on: Deric Kiran MD 1345 END OF REPORT DEPARTMENT OF PATHOLOGY, [address] [place] [address] Deric Kiran M.D. Director [facility] # [id number] Procedures Date Code Description Status 08/30/2019 31109 ECHO Transthoracic, Real-Time 2D With Doppler And Color Completed Flow 08/30/2019 78945 ECHO Transthoracic, Real-Time 2D With Doppler And Color Completed Flow 08/22/2019 54836 Stress Test Completed 08/21/2019 93567 EKG Tracing & Interpretation Completed Medical Devices Description No Information Available Encounters Type Date Location Provider Dx Diagnosis Office Visit 09/18/2019 [place] [facility] Miquel Chaudhari, I71.2 Thoracic aortic 8:00a Of [facility] aneurysm, without rupture Z01.810 Encounter for preprocedural cardiovascular examination E66.8 Other obesity I10 Essential (primary) hypertension L40.50 Arthropathic psoriasis, unspecified Office Visit 08/21/2019 [place] Miquel Alonzo Z01.810 Encounter for 9:00a Cardiology Sima Chaudhari DO preprocedural [facility] cardiovascular examination Z68.38 Body mass index (BMI) 38.0-38.9, adult E66.8 Other obesity R94.31 Abnormal electrocardiogram [ECG] [EKG] I10 Essential (primary) hypertension G47.33 Obstructive sleep apnea (adult) (pediatric) L40.50 Arthropathic psoriasis, unspecified Office Visit 07/23/2019 Rheumatology Garcia L40.50 Arthropathic 8:20a Services Of Denys Scott M.D. psoriasis, unspecified M10.00 Idiopathic gout, unspecified site Z79.899 Other rodent exterminator (current) drug therapy M17.0 Bilateral primary osteoarthritis of knee Office Visit 06/25/2019 Pulmonology And Ninfa G47.33 Obstructive sleep 8:30a Sleep Services Of LINH العلي, RN, apnea (adult) [facility] [employer]AL[employer] (pediatric) E66.9 Obesity, unspecified Z68.37 Body mass index (BMI) 37.0-37.9, adult Office Visit 05/17/2019 Rheumatology Garcia L40.50 Arthropathic 8:00a Services Of Denys Scott M.D. psoriasis, unspecified M10.00 Idiopathic gout, unspecified site Z79.899 Other assisted (current) drug therapy M17.0 Bilateral primary osteoarthritis of knee Assessments Date Code Description Provider 10/22/2019 L40.50 Arthropathic psoriasis, unspecified Garcia Scott M.D. 10/22/2019 M10.00 Idiopathic gout, unspecified site Garcia Scott M.D. 10/22/2019 Z79.899 Other assisted (current) drug Garcia Scott M.D. therapy 10/22/2019 K76.0 Fatty (change of) liver, not Garcia Scott M.D. elsewhere classified 10/22/2019 Z23 Encounter for immunization Garcai Scott M.D. 09/18/2019 I71.2 Thoracic aortic aneurysm, without Miquel hCaudhari, DO [facility] rupture 09/18/2019 Z01.810 Encounter for preprocedural Miquel Chaudhari DO [facility] cardiovascular examination 09/18/2019 E66.8 Other obesity Miquel Chaudhari, DO FAC 09/18/2019 I10 Essential (primary) hypertension Miquel Chaudhari, DO FAC 09/18/2019 L40.50 Arthropathic psoriasis, unspecified Miquel Chaudhari DO FAC 08/30/2019 R94.31 Abnormal electrocardiogram [ECG] Miquel Chaudhari DO [facility] [EKG] 08/30/2019 R94.31 Abnormal electrocardiogram [ECG] Traveling ECHO 2 [EKG] 08/22/2019 Z01.810 Encounter for preprocedural Miquel Chaudhari DO [facility] cardiovascular examination 08/22/2019 R94.31 Abnormal electrocardiogram [ECG] Miquel Chaudhari DO [facility] [EKG] 08/21/2019 Z01.810 Encounter for preprocedural Miquel Chaudhari DO [facility] cardiovascular examination 08/21/2019 Z68.38 Body mass index (BMI) 38.0-38.9, Miquel Chaudhari DO [facility] adult 08/21/2019 E66.8 Other obesity Miquel Chaudhari DO FAC 08/21/2019 R94.31 Abnormal electrocardiogram [ECG] Miquel Chaudhari DO [facility] [EKG] 08/21/2019 I10 Essential (primary) hypertension Miquel Chaudhari DO [facility] 08/21/2019 G47.33 Obstructive sleep apnea (adult) Miquel Chaudhari DO [facility] (pediatric) 08/21/2019 L40.50 Arthropathic psoriasis, unspecified Miquel Chaudhari DO [facility] 07/23/2019 L40.50 Arthropathic psoriasis, unspecified Garcia Scott M.D. 07/23/2019 M10.00 Idiopathic gout, unspecified site Garcia Scott M.D. 07/23/2019 Z79.899 Other rodent exterminator (current) drug Garcia Scott M.D. therapy 07/23/2019 M17.0 Bilateral primary osteoarthritis of Garcia Scott M.D. knee 06/25/2019 G47.33 Obstructive sleep apnea (adult) Ninfa العلي DNP, RN, (pediatric) [facility] 06/25/2019 E66.9 Obesity, unspecified Ninfa العلي DNP RN, [facility] 06/25/2019 Z68.37 Body mass index (BMI) 37.0-37.9, Ninfa العلي DNP, RN, adult [facility] 05/17/2019 L40.50 Arthropathic psoriasis, unspecified Garcia Scott M.D. 05/17/2019 M10.00 Idiopathic gout, unspecified site Garcia Scott M.D. 05/17/2019 Z79.899 Other rodent exterminator (current) drug Garcia Scott M.D. therapy 05/17/2019 M17.0 Bilateral primary osteoarthritis of Garcia Scott M.D. knee Plan of Treatment Future Appointment(s):01/21/2020 8:00 am - Garcia Scott M.D. at [facility]ology Services Of [facility]12/24/2019 8:15 am - Ninfa العلي DNP, RN, [facility] at Pulmonology And Sleep Services Of [facility]10/22/2019 - Garcia Scott M.D.L40.50 Arthropathic psoriasis, vqbjhyhiizaG56.00 Idiopathic gout, unspecified siteZ79.899 Other rodent exterminator (current) drug yefzxchN18.0 Fatty (change of) liver , not elsewhere [id number] Encounter for immunization Functional Status Description No Information Available Mental Status Description No Information Available Referrals Description No Information Available
[2019-12-11] MEDS ORDERED: ceFAZolin 2 GM in NS PREMIX(*) 2 GM/100 ML BAG IVPB ONE (12:47)
[2019-12-11] MEDS ORDERED: Scopolamine 1.5 mg* PATCH ONE (12:47)
[2019-12-11] MEDS ORDERED: Famotidine IV* 10 MG/ML 2 ML (20 mg) ONE (12:47)
[2019-12-11] MEDS ORDERED: Heparin VIAL(*) 5000 UNITS/ML VIAL (FIVE THOUSAND) ONE (12:47)
[2019-12-11] MEDS ORDERED: Ketorolac INJ* 30 MG/ML 1 ML VIAL ONE (13:39)
[2019-12-11] MEDS ORDERED: Ondansetron INJ* 2 MG/ML VIAL ONE (13:39)
[2019-12-11] MEDS ORDERED: Propofol* 10 MG/ML 20 ML BTL ONE (13:39)
[2019-12-11] MEDS ORDERED: Dexamethasone IV* 4 MG/ML 1 ML (4 MG) ONE (13:39)
[2019-12-11] MEDS ORDERED: Lidocaine 2% PF * 5 ML VIAL ONE (13:39)
[2019-12-11] MEDS ORDERED: Rocuronium* 10 MG/ML VIAL ONE (13:40)
[2019-12-11] MEDS ORDERED: fentaNYL* 50 MCG/ML 5 ML VIAL (250 MCG VIAL) ONE (13:40)
[2019-12-11] MEDS ORDERED: Midazolam* 1 MG/ML 5 ML VIAL (5 MG) ONE (13:40)
[2019-12-11] MEDS ORDERED: Methylene Blue 0.5 %* 50 MG/10 ML AMP IV ONE (14:32)
[2019-12-11] MEDS ORDERED: Bupivacaine 0.5% W/EPI SDV* 30 ML VIAL ONE (14:32)
[2019-12-11] MEDS ORDERED: ceFAZolin 1 GM ADVAN(*) 1 GM ADDV.VIAL IVPB ONE (14:45)
[2019-12-11] MEDS ORDERED: Metoclopramide IV* 5 MG/ML 2 ML VIAL ONE (15:30)
[2019-12-11] MEDS ORDERED: DiMENhydriNATE IV* 50 MG/ML VIAL IV PUSH PRN (15:48)
[2019-12-11] MEDS ORDERED: fentaNYL* 50 MCG/ML 2 ML VIAL (100 MCG VIAL) IV PRN (15:48)
[2019-12-11] MEDS ORDERED: Naloxone* 0.4 MG/ML 1 ML VIAL IV PRN (15:48)
[2019-12-11] MEDS ORDERED: Ondansetron INJ* 2 MG/ML VIAL IV PRN ×2 (15:48→16:45)
[2019-12-11] MEDS ORDERED: Acetaminophen IV 1GM/100ML * 1,000 MG/100 ML VIAL IVPB ONE (15:48)
[2019-12-11] MEDS ORDERED: Sugammadex * 500 MG/5 ML VIAL IV PUSH ONE (16:27)
[2019-12-11] MEDS ORDERED: HYDROmorphone INJ1* 1 MG/ML SYRINGE ONE ×2 (16:28→17:10)
[2019-12-11] MEDS ORDERED: Acetaminophen ADULT LIQ* 650 MG/20.3 ML UDC PO PRN (16:45)
[2019-12-11] MEDS ORDERED: HYDROmorphone INJ* 0.5 MG/0.5 ML SYRINGE IV SLOW PU PRN (16:45)
--- NOTE | 2019-12-11 16:45 | BRIEFOPN ---
Brief Operative/Procedure Note - Operation Details Pre-Op Diagnosis: Obesity Post-Op Diagnosis: Obesity Procedures: Laparoscopic marychuy en y gastric bypass Surgeon(s)/Proceduralists: Dr. Pinon. Assist: FAROOQ Alcala Anesthesia: GETA Estimated Blood Loss: <30cc Findings: As above Specimen(s)/Culture(s) Description: None Complications: None
[2019-12-11] MEDS: HYDROmorphone INJ1* 1 MG/ML SYRINGE IV PRN ×2 (17:10→17:20)
[2019-12-11] MEDS: Lactated Ringers 1000 ML Bag* 1,000 ML IV SCH (18:47)
[2019-12-11] MEDS: Famotidine IV* 10 MG/ML 2 ML (20 mg) IV SLOW PU SCH (21:39)
[2019-12-11] MEDS: Heparin VIAL(*) 5000 UNITS/ML VIAL (FIVE THOUSAND) SUBCUT SCH (21:42)
[2019-12-12] MEDS: Ketorolac INJ* 15 MG/ML 1 ML VIAL IV SCH ×2 (00:50→06:10)
[2019-12-12] MEDS: Lactated Ringers 1000 ML Bag* 1,000 ML IV SCH ×2 (01:38→08:52)
--- NOTE | 2019-12-12 02:34 | OP ---
CC: Garcia Lemon MD; [facility] * DATE OF OPERATION: 12/11/19 - ROOM #352 DATE OF : 66 SURGEON: Hair Pinon MD CORD TIRE BUILDER: FAROOQ Lubin ANESTHESIOLOGIST: Keegan Tavarez MD ANESTHESIA: General endotracheal. PRE-OP DIAGNOSIS: Clinically severe obesity. POST-OP DIAGNOSES: Clinically severe obesity and hiatal hernia. OPERATIVE PROCEDURE: Laparoscopic Susie-en-Y gastric bypass. ESTIMATED BLOOD LOSS: Less than 20 mL. IV FLUIDS: Crystalloid. SPECIMEN: None. DRAINS: None. COMPLICATIONS: None. COUNTS: Instrument, needle and sponge counts correct. DESCRIPTION OF PROCEDURE: The patient was brought to the operating room and placed on the table supine. Sequential compression devices were placed on both lower extremities. General anesthesia was administered. His abdomen was prepped and draped in usual sterile fashion. A time-out was performed. Local anesthetic was infiltrated into the skin and soft tissue prior to making each incision. Entry to the abdomen was through a left upper quadrant incision accommodating a 12 mm optical trocar. After accessing the peritoneal cavity, carbon dioxide was insufflated to a pressure of 15 mmHg. Under direct visualization, 12 mm bladeless trocars were placed supraumbilically and in the right upper quadrant, while 5 mm bladeless trocars were placed in the right upper quadrant medially and left upper quadrant laterally. A Jesus liver retractor was placed percutaneously in the subxiphoid position and used to elevate the left lobe of the liver. Gastric anatomy revealed that there was a hiatal hernia. Otherwise, gastric anatomy was normal. Epigastric fat-pad was reduced from the hernia and dissected free. The cardia of the stomach was dissected free from the left arlette of the diaphragm and then perigastric dissection was undertaken in the lesser curvature of the stomach at approximately the second crossing vein entered the lesser sac. With several firings of the Endo-ANITHA stapler with brown cartridges, gastric pouch was created approximating 15 to 30 mL volume. Staple lines were noted to be intact and hemostatic. The omentum was retracted cephalad along the transverse colon and the ligament of Treitz was identified. The jejunum was measured out approximately 50 cm. At this point, the loop was sutured to the lateral staple line of the gastric pouch with interrupted 2-0 silks. Then, a gastrojejunal anastomosis was created with a Endo-ANITHA stapler using the 30 mm brown cartridge. The common gastroenterotomy was run closed with 3-0 PDS over 34-Bahamian gastric lavage tube. The loop of jejunum was divided to the left of the gastric pouch with the Endo-ANITHA stapler with a brown cartridge and then the anastomosis was tested with methylene blue dye solution instilled through the orogastric tube and no leak identified. The Susie limb was measured out 75 cm. At this point, a functional end-to-side jejunojejunostomy was created with the End-ANITHA stapler with 60 mm brown cartridge and the common enterotomy was run closed with 3-0 PDS running it to and fro and tying it to itself. Lastly, the mesenteric defect was closed with interrupted 3-0 silks. At this point, the Jesus liver retractor was removed. Hemostasis was assured. Carbon dioxide and ports were removed. Incisions were closed with 4-0 Monocryl in subcuticular fashion to approximate the skin. DermaFlex was applied to the wound. The patient was extubated uneventfully and transferred to Recovery in stable condition. [id number]/[facility] #: [id number] [facility]ITAL[facility] Eduardo
[2019-12-12] MEDS: Heparin VIAL(*) 5000 UNITS/ML VIAL (FIVE THOUSAND) SUBCUT SCH ×3 (06:12→21:59)
[2019-12-12] MEDS: Famotidine IV* 10 MG/ML 2 ML (20 mg) IV SLOW PU SCH ×2 (09:14→22:01)
--- NOTE | 2019-12-12 11:56 | PN ---
Progress Note - Progress Note Date of Service: 12/12/19 SOAP: Subjective: NAD comfortable in bed tolerating Tong Clears, no flatus or BM yet, no nausea [] Objective: Vital Signs Temp 97.8 F 12/12/19 11:14 Pulse 61 12/12/19 11:14 Resp 12 12/12/19 11:14 BP 140/74 12/12/19 11:14 Pulse Ox 99 12/12/19 11:14 Intake & Output 12/11/19 12/12/19 12/12/19 18:59 06:59 18:59 Intake Total 1550 990 Output Total 1200 Balance 1550 -210 Weight 268 lb 9.6 oz 269 lb 8 oz 270 lb 6.4 oz Intake: IV Fluids 1550 990 LR 1550 990 Oral 0 Output: Urine 1200 PEX: GEN: NAD Chest:CTA CVS: Bradycardic rate rhythm Abd:Obese, soft, incisions C/D/I incisional tenderness Ext:calves soft, non tender [] Assessment:49 yo male POD 1 S/p Laparoscopic Susie en Y Gastric Bypass [] Plan: Tong Clears, Ambulate, encouraged Deep Breathing, IS, SCD's []
[2019-12-12] MEDS: HYDROcodone/ACET. 7.5/325 LIQ* 15 ML UDC PO PRN ×2 (12:00→18:43)
[2019-12-12] MEDS: D5W 1/2 NS KCl 20 Meq 1000 ML* 1,000 ML IV SCH (16:13)
[2019-12-13] MEDS: D5W 1/2 NS KCl 20 Meq 1000 ML* 1,000 ML IV SCH (00:15)
[2019-12-13] MEDS: Heparin VIAL(*) 5000 UNITS/ML VIAL (FIVE THOUSAND) SUBCUT SCH (06:12)
[2019-12-13] MEDS: HYDROcodone/ACET. 7.5/325 LIQ* 15 ML UDC PO PRN (06:17)
--- NOTE | 2019-12-13 08:13 | PN ---
Progress Note - Progress Note Date of Service: 12/13/19 SOAP: Subjective: Feels well. Tolerating po without N/V. +flatus. Pain controlled. Objective: Vital Signs Temp 97.8 F 12/13/19 03:15 Pulse 45 12/13/19 03:15 Resp 20 12/13/19 06:19 BP 155/98 12/13/19 03:15 Pulse Ox 100 12/13/19 03:15 Gen: NAD Abd: incisions c/d/i no erythema/ecchymosis Intake & Output 12/12/19 12/13/19 12/13/19 18:59 06:59 18:59 Intake Total 1989 1729 Output Total 1000 2400 Balance 990 -670 Weight 270 lb 6.4 oz 266 lb Intake: IV Fluids 1959 980 D5W 1/2 NS 20 meq KCL 980 LR 1960 Oral 30 750 Output: Urine 1000 2400 Other: Estimated Void Small # Bowel Movements 0 # Voids 1 Assessment: POD#2 s/p LRYGB. Doing well. Plan: Cont diet. Discharge home today. RTO 1 week.
[2019-12-13 08:14] VITALS: BP 132/84
[2019-12-13] MEDS: Famotidine IV* 10 MG/ML 2 ML (20 mg) IV SLOW PU SCH (08:30)
--- NOTE | 2019-12-13 12:44 | DS ---
CC: Dr. Garcia Lemon; Dr. Scott; Dr. Miquel Chaudhari * DATE OF ADMISSION: 12/11/2019. DATE OF DISCHARGE: 12/13/2019. ATTENDING SURGEON: Dr. Hair Pinon * (dictated by Fauzia Almaguer NP). HOSPITAL COURSE: Please refer to admission history and physical for admission details. The patient was taken to the operating room on Wednesday, December 11, 2019 and underwent laparoscopic Susie-en-Y gastric bypass by Dr. Pinon. He has had an uneventful postoperative course and required minimal pain medication and was able to meet the criteria for oral intake of bariatric clear liquids. He was ambulating in the halls and using his Inspiron. He was seen earlier this morning by Dr. Pinon and myself and he has met the criteria for discharge. PHYSICAL EXAMINATION: Well-appearing, in no acute distress. Vital signs are stable. Blood pressure 132/84, heart rate 48, respiratory rate 16, he is afebrile, O2 saturation on room air 98 percent. Lungs: Breath sounds bilaterally clear and equal. Heart: Regular rate and rhythm. No murmurs or rubs appreciated. Abdomen: All of the incisions are intact with skin glue. The incisions are clean and dry and there is no surrounding erythema. There are active bowel sounds and the patient is passing flatus. His abdomen is soft with appropriate incisional tenderness. Extremities are warm without calf tenderness or significant edema. Skin is warm and dry. CONDITION ON DISCHARGE: Stable. IMPRESSION: Postop day two status post laparoscopic Susie-en-Y gastric bypass, doing extremely well. PLAN: Discharge home today. All of his medications were reviewed. His will be monitoring his pulse which currently is ranging anywhere from 44 to 48 due to being on Atenolol. He has a prescription at home for liquid Hydrocodone/ acetaminophen as needed and he may use [id number] liquid adult strength Tylenol for mild pain. He has an appointment at [facility] next week for follow-up and knows to call sooner with any concerns. All of his questions were answered. LEROY ALMAGUER NP [id number]/[facility] #: [id number] [facility]PITALCarl[facility] Eduardo
[2019-12-14] MEDS ORDERED: Scopolamine PATCH Remove* 1 NOTE MISC PATCH OFF ONE (06:00)
== END 2019-12-13 09:45 | disposition home or self-care (01) | DRG 403 ==
LOC: AA 12:10 → SSU 18:59
PROVIDERS: ADMIT Surgery; ATTEND Surgery
PROC: 0D164ZA Bypass Stomach to Jejunum, Percutaneous Endoscopic Approach (ICD-10-PCS; principal; 2019-12-11 13:15)
DX: E66.01 Morbid (severe) obesity due to excess calories (principal); I10 Essential (primary) hypertension; M19.90 Unspecified osteoarthritis, unspecified site; I71.2 Thoracic aortic aneurysm, without rupture; K44.9 Diaphragmatic hernia without obstruction or gangrene; M10.9 Gout, unspecified; G47.33 Obstructive sleep apnea (adult) (pediatric); L40.50 Arthropathic psoriasis, unspecified; Z88.8 Allergy status to other drugs, medicaments and biological substances; Z68.37 Body mass index [BMI] 37.0-37.9, adult
CPT/HCPCS: 43644; A9270-GY; C1776; J0690; J1100; J1170; J1644; J1885; J2250; J2405; J2704; J2765; J3010

== ENCOUNTER 2019-12-22 13:13 | Emergency (ER) | payer BC ==
[2019-12-22] MEDS ORDERED: NS 0.9% 1000 ML** 1,000 ML IV ONE ×2 (13:46→14:34)
--- NOTE | 2019-12-22 13:56 | ED ---
Dizziness - HPI Summary HPI Summary: 49 year old M presents to [facility] via private car accompanied by his with a chief complaint of dizziness. The patient states that he was dizzy, nauseous, diaphoretic and felt as if he was near syncope earlier this morning. The patient had a bariatric surgical procedure on 12/11/[address] Pinon and has been on a strict fluids diet since the operation. The patient's states that the patient is taking less than the recommended amount of fluids per day. The patient's reports that the patient had dizzy spells in the past, but it was not as severe as his symptoms today. The patient also reports having a chest "ache", SOB, nausea, and rhinorrhea. Patient denies having sore throat, hematuria, pain in his abdomen, and diarrhea. He has a PMHx of a slightly enlarged aortic aneurysm and HTN. He is prescribed atenolol. Home Medications Medication Instructions Recorded Confirmed Type Sildenafil (NF) [Viagra (NF)] 1 tab PO DAILY PRN 10/20/18 12/06/19 History Triamcinolone PASTE 0.1% (NF) 1 applic TOPICAL DAILY PRN 11/10/18 12/06/19 History [Triamcinolone 0.1% PASTE *] Acetaminophen TAB* [Tylenol TAB*] 975 mg PO DAILY PRN 06/08/19 12/11/19 History Atenolol TAB* [Tenormin TAB* 25 MG] 25 mg PO QAM 12/06/19 12/11/19 History Ergocalciferol (Vitamin D2) 1.25 mg PO WE 12/06/19 12/11/19 History [Vitamin D2] Mirtazapine TAB* [Remeron TAB*] 15 mg PO BEDTIME PRN 12/06/19 12/11/19 History Ustekinumab [Stelara] 90 mg SUBCUT Q90D 12/06/19 12/11/19 History - History Of Current Complaint Chief Complaint: EDDizziness Stated Complaint: DIZZINESS/LOW BP PER PT Time Seen by Provider: 12/22/19 13:36 Hx Obtained From: Patient, Family/Armoured Car Escort Onset/Duration: Still Present Character: Room Spinning, Dizzy Associated Signs And Symptoms: Positive: Nausea, Diaphoresis, Chest Pain - "ache ", SOB, Change In Medication - Patient is currently not taking his prescribed atenolol., Change In Diet - Patient is currently on a fluids diet post bariatric surgery on 12/11/2019., Other: - negative - abdominal pain, sore throat, hematuria. Negative: Diarrhea - Risk Factors Cardiac Risk Factors: Hypertension - Allergies/Home Medications Allergies/Adverse Reactions: Allergies Allergy/AdvReac Type Severity Reaction Status Date / Time bupropion [From Wellbutrin] Allergy Intermediate Swelling Verified 12/22/19 13: 22 adalimumab [From Humira] Allergy nausea,chest Verified 12/22/19 13:22 pain,joint aches, reflux Home Medications: Home Medications Sildenafil (NF) [Viagra (NF)] 1 tab PO DAILY PRN 10/20/18 [History Confirmed ] Triamcinolone PASTE 0.1% (NF) [Triamcinolone 0.1% PASTE *] 1 applic TOPICAL DAILY PRN 11/10/18 [History Confirmed 12/06/19] Acetaminophen TAB* [Tylenol TAB*] 975 mg PO DAILY PRN 06/08/19 [History Confirmed 12/11/19] Atenolol TAB* [Tenormin TAB* 25 MG] 25 mg PO QAM 12/06/19 [History Confirmed ] Ergocalciferol (Vitamin D2) [Vitamin D2] 1.25 mg PO WE 12/06/19 [History Confirmed 12/11/19] Mirtazapine TAB* [Remeron TAB*] 15 mg PO BEDTIME PRN 12/06/19 [History Confirmed 12/11/19] Ustekinumab [Stelara] 90 mg SUBCUT Q90D 12/06/19 [History Confirmed 12/11/19] PMH/Surg Hx/FS Hx/Imm Hx Endocrine/Hematology History: Denies: Hx Diabetes, Hx Thyroid Disease Cardiovascular History: Reports: Hx Hypertension, Other Cardiovascular Problems/ Disorders - REPORTS SMALL ANEURSYM ON VALVE-SEE [facility] Denies: Hx Pacemaker/ICD Respiratory History: Reports: Hx Sleep Apnea Denies: Hx Asthma, Hx Chronic Obstructive Pulmonary Disease (COPD), Other Respiratory Problems/Disorders GI History: Denies: Hx Ulcer, Other GI Disorders History: Denies: Hx Renal Disease, Other Problems/Disorders Musculoskeletal History: Reports: Hx Arthritis - PSORIATIC ARTHRITIS Denies: Other Musculoskeletal History Sensory History: Reports: Hx Contacts or Glasses - READING GLASSES Denies: Hx Hearing Aid Opthamlomology History: Reports: Hx Contacts or Glasses - READING GLASSES Neurological History: Denies: Other Neuro Impairments/Disorders Psychiatric History: Denies: Hx Panic Disorder, Other Psychiatric Issues/Disorders - Surgical History Surgical History: Yes Surgery Procedure, Year, and Place: cirumscision, Laproscopic Susie en Y Gastric Bypass Surgery completed on 12/11/2019. Hx Anesthesia Reactions: Yes - HEAVY NAUSEA Infectious Disease History: No Infectious Disease History: Reports: Hx Shingles - 2003 Denies: Hx Clostridium Difficile, Hx Hepatitis, Hx Human Immunodeficiency Virus (HIV), Hx of Known/Suspected MRSA, Hx Tuberculosis, Hx Known/Suspected VRE , Hx Known/Suspected VRSA, History Other Infectious Disease, Traveled Outside the [place] in Last 30 Days - Family History Known Family History: Negative: Cardiac Disease - Social History Alcohol Use: None Substance Use Type: Reports: None Smoking Status (MU): Never Smoked Tobacco Amount Used/How Often: 1 PPD X 2 YEARS- ALSO EXPOSED TO SECOND HAND SMOKE Have You Smoked in the Last Year: No Review of Systems Positive: Skin Diaphoresis Positive: Nasal Discharge. Negative: Sore Throat Positive: Shortness Of Breath Positive: Nausea. Negative: Abdominal Pain, Diarrhea Negative: hematuria Musculoskeletal: Other - Chest ache. Neurological/Mental Status: Other - Dizziness. Positive: Syncope - Near-syncope. All Other Systems Reviewed And Are Negative: Yes Physical Exam - Summary Physical Exam Summary: VITAL SIGNS: Reviewed. GENERAL: Patient is a well-developed and nourished male who is lying comfortable in the stretcher. Patient is not in any acute respiratory distress. HEAD AND FACE: No signs of trauma. No ecchymosis, hematomas or skull depressions. No sinus tenderness. EYES: PERRLA, EOMI x 2, No injected conjunctiva, no nystagmus. EARS: Hearing grossly intact. Ear canals and tympanic membranes are within normal limits. MOUTH: Oropharynx within normal limits. NECK: Supple, trachea is midline, no adenopathy, no JVD, no carotid bruit, no c- spine tenderness, neck with full ROM. CHEST: Symmetric, no tenderness at palpation. LUNGS: Clear to auscultation bilaterally. No wheezing or crackles. CVS: Regular rate and rhythm, S1 and S2 present, no murmurs or gallops appreciated. ABDOMEN: Soft, non-tender. No signs of distention. No rebound, no guarding, and no masses palpated. Bowel sounds are normal. EXTREMITIES: FROM in all major joints, no edema, no cyanosis or clubbing. NEURO: Alert and oriented x 3. No acute neurological deficits. Speech is normal and follows commands. SKIN: Dry and warm. Incisions from bariatric surgery on 12/11/2019 are clean, dry and intact. Triage Information Reviewed: Yes Vital Signs On Initial Exam: Initial Vitals Temp Pulse Resp BP Pulse Ox 97.7 F 54 16 106/76 100 12/22/19 13:17 12/22/19 13:17 12/22/19 13:17 12/22/19 13:17 12/22/19 13:17 Vital Signs Reviewed: Yes Procedures - Sedation Patient Received Moderate/Deep Sedation with Procedure: No Diagnostics - Vital Signs Vital Signs Temp Pulse Resp BP Pulse Ox 12/22/19 13:17 97.7 F 54 16 106/76 100 - Laboratory Result Diagrams: 12/22/19 13:53 12/22/19 13:53 Lab Statement: Any lab studies that have been ordered have been reviewed, and results considered in the medical decision making process. - Radiology CXR Radiology Interpretation Completed By: Radiologist Summary of Radiographic Findings: IMPRESSION: #. No acute pulmonary or cardiac process evident. The ED physician has reviewed this CXR. - EKG 1356 Cardiac Rate: Bradycardia EKG Rhythm: Sinus Rhythm Summary of EKG Findings: Patient has a HR of 47 bpm. EKG is negative for ST elevation and positive for an inverted T wave in Lead 3. Patient has a normal axis. The ED physician has reviewed this EKG. Dizzy Course/Dx - Course Assessment/Plan: 49 year old M presents to [facility] via private car accompanied by his with a chief complaint of dizziness. The patient states that he was dizzy, nauseous, diaphoretic and felt as if he was near syncope earlier this morning. The patient had a bariatric surgical procedure on 12/11/[address] Pinon and has been on a strict fluids diet since the operation. The patient's states that the patient is taking less than the recommended amount of fluids per day. The patient's reports that the patient had dizzy spells in the past, but it was not as severe as his symptoms today. The patient also reports having a chest "ache", SOB, nausea, and rhinorrhea. Patient denies having sore throat, hematuria, pain in his abdomen, and diarrhea. He has a PMHx of a slightly enlarged aortic aneurysm and HTN. He is prescribed atenolol. In the ED course the patient was placed in a maintenance department technician, IV access was obtained, IV fluids started. Past medical records reviewed. Blood test w/o a significant abnormality except for BUN 28, creatinine 1.29, glucose 101, total bili 2, AST is 64 and BMP 111. Urinalysis with positive protein, trace ketones , positive urobilinogen, 1+ leukocyte esterase 1+ WBCs, 2+ RBCs. influenza A and B-. After hydration the patients recent symptoms have resolved. The patient is not dizzy, blood pressure is 103/73. I believe that the patients Lopressor should be stopped at this point. Patient will be discharged home with follow-up with PCP. Patient ambulated without any difficulty. At this point, I discussed all the findings and test results with the patient. Patient was instructed to return to the emergency room immediately if any of the symptoms return or worsen.Plan of care was discussed with the patient and the patient understands and agrees. All questions were answered at patient satisfaction. Patient understands and agrees. Neurological exam before discharge: Patient is alert and oriented x 3. No acute neurological deficits. Patient's vital signs are stable. Patient is to follow up with PCP in the next 2 3 days. They understand and agree. The plan of care was discussed with the patient and the patient understands and agrees with the plan of care. All questions were answered at patient satisfaction. There were no further complaints or concerns. - Diagnoses Provider Diagnoses: Dizziness - Provider Notifications Discussed Care Of Patient With: Hair Pinon Time Discussed With Above Provider: 13:48 Instructed by Provider To: Other - Dr. Andrew spoke to Dr. Pinon about the patient's bariatric sugery and how it may or may not be related to his symptoms presented today. Discharge ED - Sign-Out/Discharge Documenting (check all that apply): Patient Departure - Discharge. - Discharge Plan Condition: Stable Disposition: HOME Patient Education Materials: Dehydration (ED), Dizziness (ED) Referrals: Garcia Lemon MD [Primary Care Provider] - 3 Days Additional Instructions: Please return to ED for any new or worsening symptoms. Please follow up with your primary care physician within three days. - Billing Disposition and Condition Condition: STABLE Disposition: Home - Attestation Statements Document Initiated by Rodolfo: Yes Documenting Scribe: Vicky Tom Provider For Whom Scribe is Documenting (Include Credential): Manuel Andrew MD Scribe Attestation: IVicky, scribed for Manuel Andrew MD on 12/23/19 at 0830. Scribe Documentation Reviewed: Yes Provider Attestation: The documentation as recorded by the rodolfo, Vicky Tom accurately reflects the service I personally performed and the decisions made by , Manuel Andrew MD Status of Scribe Document: Viewed
[2019-12-22 14:01] LABS: ABS Eosinophils 0.1 10^3/ul (0-0.6); ABS Lymphocytes 1.2 10^3/ul (1.0-4.8); ABS Monocytes 0.8 10^3/ul (0-0.8); ABS Neutrophils 7.8 10^3/ul (1.5-7.7); Eosinophil % 0.5 %; Hematocrit 44 % (42-52); Hemoglobin 15.5 g/dL (14.0-18.0); Mean Corpuscular HGB Conc 35 g/dL (31-36); Mean Corpuscular Hemoglobin 31 pg (27-31); Mean Corpuscular Volume 88 fL (80-94); Nucleated Red Blood Cells % 0.2; Platelet Count 190 10^3/uL (150-450); Red Blood Count 5.03 10^6 /uL (4.18-5.48); Red Cell Distribution Width 14 % (10-15); White Blood Count 9.9 10^3/uL (3.5-10.8)
[2019-12-22 14:12] LABS: Influenza A Molecular Negative (Negative); Influenza B Molecular Negative (Negative)
[2019-12-22 14:18] LABS: Albumin 4.4 g/dL (3.2-5.2); Albumin/Globulin Ratio 1.7 (1-3); BUN/Creatinine Ratio 21.7 (8-20); Calcium 9.9 mg/dL (8.6-10.3); EGFR African American 71.1 (>60); EGFR Non-African American 58.7 (>60); Globulin 2.6 g/dL (2-4); Magnesium 2.2 mg/dL (1.9-2.7); Potassium 4.3 mmol/L (3.5-5.0)
[2019-12-22 14:20] LABS: Troponin I 0.02 ng/mL (<0.03)
[2019-12-22 14:35] LABS: Urine Appearance Cloudy; Urine Bilirubin Negative (Negative); Urine Blood Negative (Negative); Urine Color Amber; Urine Glucose Negative (Negative); Urine Ketones Trace (Negative); Urine Nitrite Negative (Negative); Urine Protein 1+(30 mg/dL) (Negative); Urine Specific Gravity 1.024 (1.010-1.030); Urine Urobilinogen Positive (Negative)
[2019-12-22 14:37] LABS: Urine Bacteria Absent (Absent); Urine Red Blood Cell 2+(6-10/hpf) (Absent); Urine White Blood Cell 1+(6-10/hpf) (Absent)
[2019-12-22 14:56] LABS: TSH (Thyroid Stimulating Horm) 1.42 mcIU/mL (0.34-5.60)
[2019-12-22 17:16] VITALS: BP 122/78
== END 2019-12-22 17:15 | disposition home or self-care (01) ==
LOC: ED 13:13
DX: R42 Dizziness and giddiness (principal); R55 Syncope and collapse; I10 Essential (primary) hypertension; R06.02 Shortness of breath; R11.0 Nausea
CPT/HCPCS: 36415; 71046; 80053; 81003; 81015; 83605; 83735; 83880; 84443; 84484; 85025; 87086; 93005; 96360; 96361; 99282

== ENCOUNTER 2022-06-07 07:30 | Inpatient (IN) ==
[2022-06-23] MEDS ORDERED: Lactated Ringers 1000 ml BAG 1,000 ML IV SCH (06:00)
[2022-06-23] MEDS ORDERED: Famotidine IV 10 MG/ML 2 ml VIAL (20 mg) IV ONE (06:00)
[2022-06-23] MEDS ORDERED: Buffered Lidocaine 1% SYRIN 1 ml INTRADERM ONE (06:00)
[2022-06-23] MEDS ORDERED: ceFAZolin 2 GM in NS PREMIX 2 GM/100 ML BAG IVPB ONE (07:52)
[2022-06-23] MEDS ORDERED: Famotidine IV 10 MG/ML 2 ml VIAL (20 mg) ONE (07:52)
[2022-06-23] MEDS ORDERED: Ondansetron 4 mg VIAL 2 MG/ML 2 ml VIAL ONE (08:13)
[2022-06-23] MEDS ORDERED: Propofol 10 MG/ML 20 ML BTL ONE ×2 (08:13→13:05)
[2022-06-23] MEDS ORDERED: Phenylephrine IV 10 MG/ML 1 ml VIAL ONE (08:13)
[2022-06-23] MEDS ORDERED: Dexamethasone IV 4 MG/ML VIAL 1 ml VIAL ONE (08:13)
[2022-06-23] MEDS ORDERED: Vancomycin 1,000 MG VIAL ONE (08:13)
[2022-06-23] MEDS ORDERED: Lidocaine 2% PF 5 ML VIAL ONE ×2 (08:13→08:27)
[2022-06-23] MEDS ORDERED: Midazolam 5 mg/5 ml VIAL 1 mg/ml 5 ml VIAL (5 mg) ONE (08:26)
[2022-06-23] MEDS ORDERED: ROPIVACAINE 5 MG/ML 30 ML BTL (0.5%) ONE (08:27)
[2022-06-23] MEDS ORDERED: fentaNYL 100 mcg/2 ml 50 MCG/ML VIAL ONE ×3 (08:27→09:43)
[2022-06-23] MEDS ORDERED: Midazolam 2 mg/2 ml VIAL 1 mg/ml 2 ml VIAL (2 mg) ONE (08:55)
[2022-06-23] MEDS ORDERED: Scopolamine 1 mg/72hr PATCH ONE (09:34)
[2022-06-23] MEDS ORDERED: HYDROmorphone 0.5 MG/0.5 ML SYRINGE ONE ×2 (13:06→13:22)
[2022-06-23] MEDS ORDERED: Ondansetron ODT 4 mg TAB 4 MG TAB PO PRN (13:42)
[2022-06-23] MEDS ORDERED: Magnesium Hydroxide LIQ 30 ML UDC PO PRN (13:42)
[2022-06-23] MEDS ORDERED: Lactulose 30 ml UDC PO PRN (13:42)
[2022-06-23] MEDS ORDERED: Ondansetron 4 mg VIAL 2 MG/ML 2 ml VIAL IV PRN (13:42)
[2022-06-23] MEDS ORDERED: Morphine 2 MG/ML SYRINGE IV PRN (13:42)
[2022-06-23] MEDS ORDERED: Acetaminophen IV 1 GM/100ML 1,000 MG/100 ML BAG IV ONE (14:19)
[2022-06-23] MEDS ORDERED: HYDROmorphone 1 MG/1 ML SYRINGE ONE (14:19)
[2022-06-23] MEDS: Lactated Ringers 1000 ml BAG 1,000 ML IV SCH (16:33)
[2022-06-23] MEDS: ceFAZolin 1 GM ADVAN 1 GM in NS 0.9% 50 ML 50 ML IVPB SCH (18:38)
[2022-06-23] MEDS: Magnesium Hydroxide LIQ 30 ML UDC PO SCH (22:42)
[2022-06-24] MEDS: Lactated Ringers 1000 ml BAG 1,000 ML IV SCH (03:03)
[2022-06-24] MEDS: ceFAZolin 1 GM ADVAN 1 GM in NS 0.9% 50 ML 50 ML IVPB SCH ×2 (03:04→10:23)
[2022-06-24 06:19] LABS: Hematocrit 29 % (42-52); Hemoglobin 9.9 g/dL (14.0-18.0); Mean Platelet Volume 10.1 fL (7.4-10.4); Platelet Count 104 10^3/uL (150-450)
[2022-06-24 07:18] LABS: Calcium 8.3 mg/dL (8.6-10.3); Potassium 3.9 mmol/L (3.5-5.0); eGFR CKD-EPI 82.1 (>60)
[2022-06-24] MEDS: Magnesium Hydroxide LIQ 30 ML UDC PO SCH (07:37)
[2022-06-24] MEDS ORDERED: Vitamin THERAPEUTIC TAB PO SCH (09:00)
[2022-06-24 11:33] VITALS: BP 108/67
== END 2022-06-24 13:15 | disposition home or self-care (01) | DRG 302 ==
LOC: AA 06-23 06:53 → SSU 06-23 15:49
PROVIDERS: ADMIT Orthopaedic Surgery; ATTEND Orthopaedic Surgery

== ENCOUNTER 2024-06-01 06:25 | Observation (INO) ==
[2024-06-01] MEDS ORDERED: ceFAZolin 2 GM PREMIX 2 GM/50 ML BAG ONE (07:23)
[2024-06-01] MEDS ORDERED: Tranexamic Acid 1 GM/100ML BAG 2,000 MG/200 ML BAG IV ONE (07:24)
[2024-06-01] MEDS: Lactated Ringers 1000 ml BAG 1,000 ML IV SCH ×2 (07:35→12:52)
[2024-06-01] MEDS: Buffered Lidocaine 1% SYRIN 1 ml INTRADERM ONE (07:35)
[2024-06-01] MEDS ORDERED: Dexamethasone IV 4 MG/ML VIAL 1 ml VIAL ONE (07:36)
[2024-06-01] MEDS ORDERED: Famotidine IV 10 MG/ML 2 ml VIAL (20 mg) ONE (07:36)
[2024-06-01] MEDS: Famotidine IV 10 MG/ML 2 ml VIAL (20 mg) IV ONE (07:37)
[2024-06-01] MEDS: Dexamethasone IV 4 MG/ML VIAL 1 ml VIAL IV SLOW PU ONE (07:37)
[2024-06-01 07:42] LABS: Rapid COVID-19 Molecular Undetected (Undetected)
[2024-06-01] MEDS ORDERED: fentaNYL 100 mcg/2 ml 50 MCG/ML VIAL ONE (07:54)
[2024-06-01] MEDS ORDERED: Midazolam 2 mg/2 ml VIAL 1 mg/ml 2 ml VIAL (2 mg) ONE (07:54)
[2024-06-01] MEDS ORDERED: ROPIVACAINE 5 MG/ML 30 ML BTL (0.5%) ONE ×2 (07:56→08:01)
[2024-06-01] MEDS ORDERED: Scopolamine 1 mg/72hr PATCH ONE (08:17)
[2024-06-01] MEDS ORDERED: Naloxone 0.4 mg VIAL 0.4 mg/ml 1 ml VIAL IV PRN (08:31)
[2024-06-01] MEDS ORDERED: Prochlorperazine 5 mg/ml 2 ml VIAL (10 mg) IV PRN (08:31)
[2024-06-01] MEDS ORDERED: fentaNYL 100 mcg/2 ml 50 MCG/ML VIAL IV PRN (08:31)
[2024-06-01] MEDS ORDERED: Ondansetron 4 mg VIAL 2 MG/ML 2 ml VIAL ONE (08:47)
[2024-06-01] MEDS ORDERED: Glycopyrrolate IV 0.2 MG/ML 1 ML VIAL ONE (08:54)
[2024-06-01] MEDS ORDERED: Magnesium Hydroxide LIQ 30 ML UDC PO PRN (09:23)
[2024-06-01] MEDS ORDERED: Ondansetron ODT 4 mg TAB 4 MG TAB PO PRN (09:23)
[2024-06-01] MEDS ORDERED: Morphine 2 MG/ML SYRINGE IV PRN (09:23)
[2024-06-01] MEDS ORDERED: Calcium Carb (TUMS) 500 mg CHEW TAB PO PRN (09:23)
[2024-06-01] MEDS ORDERED: Ondansetron 4 mg VIAL 2 MG/ML 2 ml VIAL IV PRN (09:23)
[2024-06-01] MEDS ORDERED: Lactulose 30 ml UDC PO PRN (09:23)
[2024-06-01] MEDS ORDERED: Propofol 10 MG/ML 20 ML BTL ONE (10:19)
[2024-06-01] MEDS: HYDROcodone/ACETAMIN 5/325 mg TAB PO PRN (14:11)
[2024-06-01] MEDS: ceFAZolin 2 GM PREMIX 2 GM/50 ML BAG IVPB SCH (16:42)
[2024-06-01] MEDS: Magnesium Hydroxide LIQ 30 ML UDC PO SCH (23:11)
[2024-06-02 05:53] LABS: Hematocrit 31.3 % (38-53); Mean Platelet Volume 9.7 fL (7.5-11.2); Platelet Count 125 10^3/uL (150-450)
[2024-06-02 06:23] LABS: Calcium 8.4 mg/dL (8.6-10.3); Creatinine, Serum 0.8 mg/dL (0.67-1.17); Potassium 3.5 mmol/L (3.5-5.0); eGFR CKD-EPI 104.5 (>60)
[2024-06-02] MEDS: Vitamin THERAPEUTIC TAB PO SCH (08:53)
[2024-06-02 10:40] VITALS: BP 113/75
== END 2024-06-02 12:20 | disposition home or self-care (01) ==
LOC: OR 06:25 → SSU 06:25 → EDSTATUS 08:30
PROVIDERS: ADMIT Orthopaedic Surgery Adult Reconstructive Orthopaedic Surgery; ATTEND Orthopaedic Surgery Adult Reconstructive Orthopaedic Surgery